=== PATIENT | male | born 1980 | race African-American/Black ===

== ENCOUNTER 2016-12-11 09:16 | Emergency (ER) | payer BC, MEDICAID, OTHER ==
[2016-12-11] MEDS ORDERED: IBUPROFEN 600MG TABLET ONE (11:02)
[2016-12-11] MEDS ORDERED: LIDOCAINE HCL 1% 20ML VIAL (Pyxis) INJ ONE (11:03)
== END 2016-12-11 12:40 | disposition home or self-care (01) ==
LOC: ER 12:19
DX: S01.412A Laceration without foreign body of left cheek and temporomandibular area, initial encounter (principal); Y04.0XXA Assault by unarmed brawl or fight, initial encounter; Y93.89 Activity, other specified; Y92.89 Other specified places as the place of occurrence of the external cause
CPT/HCPCS: 12011; 99283; A4217; J3490; Z7610